=== PATIENT | male | born 1970 | race Caucasian/White ===

== ENCOUNTER → 2017-04-26 | Outpatient (CLI) | payer OTHER ==
[~2017-04-26] VITALS: Ht 172.7 cm; Wt 80.8 kg
[2017-04-26 16:00] VITALS: BP 135/78; PULSE 71; Ht 172.7 cm; Wt 80.8 kg
== END | disposition home or self-care (01) ==
LOC: C.NEUR 14:40
PROVIDERS: ATTEND Internal Medicine Pulmonary Disease
DX: R06.83 Snoring (principal); R53.83 Other fatigue; I10 Essential (primary) hypertension; E78.5 Hyperlipidemia, unspecified

== ENCOUNTER → 2017-06-14 | Outpatient (CLI) | payer OTHER ==
--- NOTE | 2017-06-15 05:25 | SPLIT NIGHT TECHNICIAN REPORT ---
[facility] Split Night Polysomnogram - Scratcher Report Study date: 06/14/2017 Referring Physician: Phillip Arroyo M.D. Name: BRUNO GALINDO Scratcher: KRISTY Weaver. Date of : 1970 Height: 47 years, Height 5' 8" Sex: Male Weight: 178.2 lbs Age: 47 Neck Circum: BMI: Medications: 27.09 ASA 81mg, Atenolol 25mg, Atorvastatin Calcium 80mg, HCTZ 25mg, Paroxetine HCl 10mg Patient History Study started on room air with no ETCO2 monitoring in room #8. 47 yr old male here tonight for a possible split psg. He has loud snoring, witnessed apnea and unrefreshing sleep. His father has ÁLVARO. He has HTN and never feels rested. His ESS=19/24. Neck circ=16inches. Parameters Monitored NPSG: E1-M2, E2-M1, Fp1-M2, Fp2-M1, F3-M2, F4-M2, F4-M1, C3-M2, C4-M2, C4-M1, O1-M2, O2-M2, O2-M1, T3-M2, T4-M1, P3-M2, P4-M1, CHIN1, CHIN2, HR, EKG, Legs, PFLOW, SNOR, FLOW, CFLOW, Tidal Volume, THOR, ABDO, SpO2, PLTH, CPRESS, ETCO2 Wave, ETCO2, pH SLEEP SUMMARY DATA DIAGNOSTIC TREATMENT Lights Out: 9:53:20 PM 12:57:50 AM Lights On: 12:45:20 AM 5:17:50 AM Total Recording Time (TRT): 172.1 min. 260.4 min. Total Sleep Time (TST): 152.0 min. 229.0 min. NREM Time: 148.0 min. 159.5 min. REM Time: 4.0 min. 69.5 min. Sleep Period Time (SPT): 156.5 min. 246.0 min. Sleep Efficiency (SE): 88 % 88 % Sleep Latency: 15.5 min. NONE min. Arousal Index: 17.0 9.4 PAP Treatment Levels: 4, 6, 7, 8, 10, 12, 14, 15 * Optimal Pressure(s) SLEEP STAGING DATA DIAGNOSTIC TREATMENT Duration (min) TST % Duration (min) TST % Stage Wake: 20.1 min. -- 31.4 min. -- WASO: 4.5 min. -- 17.0 min. -- NREM: 148.0 min. 97 % 159.5 min. 70 % Stage N1: 12.0 min. 8 % 24.5 min. 11 % Stage N2: 74.0 min. 49 % 121.5 min. 53 % Stage N3: 62.0 min. 41 % 13.5 min. 6 % REM: 4.0 min. 3 % 69.5 min. 30 % POSITIONAL DATA Event Count Index Event Count Index Supine: 42 17 18 8.2 Supine NREM: 40 16.2 16 10.6 Supine REM: 2 30 2 3 Non-Supine: N/A N/A 19 11.1 Non-Supine NREM: N/A N/A 18 14.8 Non-Supine REM: N/A N/A 1 2.1 AROUSAL SUMMARY DATA: Event Count Index Event Count Index Apnea Arousals: 1 0.4 5 2.1 Hypopnea Arousals: 28 11.1 16 4.2 Snore Arousals: 3 1.2 1 0.3 PLM Arousals: 1 0.4 1 0.3 Non-Specific Arousals: 7 2.8 11 2.9 Total Arousals: 43 17.0 36 9.4 MYOCLONUS (PLM) Event Count Index Event Count Index PLM: 11 4.3 13 3.4 PLM AROUSAL: 1 0.4 1 0.3 PLM W/O AROUSAL 11 4.3 12 3.1 PLM W/RESP EVENT 0 0.0 1 0.0 MYOCLONUS (PLM) Event Count Index Event Count Index LM: 3 9.9 45 11.8 LM AROUSAL: 3 1.2 3 0.8 LM W/O AROUSAL LM W/RESP EVENT LM NON SPECIFIC 27 10.7 51 13.4 HEART RATE DATA DIAGNOSTIC TREATMENT Sleep (bpm): 59 55 REM (bpm): 91 92 NREM (bpm): 91 91 Tachycardia Count: 0 0 Tachycardia Duration: 0.00 0 Bradycardia Count: 0 0 Bradycardia Duration: 0.00 0 DIAGNOSTIC PORTION TREATMENT PORTION RESPIRATORY DATA Event Count Index Event Count Index AHI: -- 16.6 -- 9.4 RDI: -- 16.6 -- 10 Obstructive Apnea: 0 0.0 5 1.3 Central Apnea: 0 0.0 2 0.5 Mixed Apnea: 1 0.4 1 0.3 Hypopnea: 41 16.2 28 7.3 RERA: 0 0.0 1 0.3 Total Apneas: 1 0.4 8 2.1 RESPIRATORY DATA REM NREM SLEEP REM NREM SLEEP Supine Position: Obstructive Apneas: 0 0 0 0 2 2 Central Apneas: 0 0 0 0 0 0 Mixed Apneas: 0 1 1 0 0 0 Hypopneas: 2 39 41 2 14 16 RERA 0 0 0 0 0 0 Total Supine Events: 2 40 42 2 16 18 Supine AHI: 30 16.2 17 3 10.6 8.2 Supine RDI: 30.0 16.2 16.6 2.9 10.6 8.2 REM NREM SLEEP REM NREM SLEEP Non-Supine Position: Obstructive Apneas: N/A N/A N/A 0 3 3 Central Apneas: N/A N/A N/A 0 2 2 Mixed Apneas: N/A N/A N/A 0 1 1 Hypopneas: N/A N/A N/A 1 11 12 RERA N/A N/A N/A 0 1 1 Total Supine Events: N/A N/A N/A 1 18 19 Supine AHI: N/A N/A N/A 2.1 14.8 11.1 Supine RDI: N/A N/A N/A 2.1 15.7 11.7 OXYGEN DESTAURATION DATA: Event Count Index Event Count Index REM Desaturations: 4 60.0 3 2.6 NREM Desaturations: 66 26.8 33 12.4 SNORE DATA DIAGNOSTIC TREATMENT Snore Time: 4.7 1:11:50 AM Snore TST%: 2 8 Snore Arousal Count: 3 1 Snore Arousal Index: 1.2 0.3 Desaturation Event Summary: Minimum %SpO2 Event Count Mean/Min/Max Duration(sec.) Desaturation Index % Time In Bed > 90 115 29.5 / 4.0 / 59.8 27.7 58.4 86 - 90 9 25.8 / 4.0 / 56.3 3.1 41.1 81 - 85 0 N/A 0.0 0.4 76 - 80 1 5.0 / 5.0 / 5.0 369.2 0.0 71 - 75 0 N/A 0.0 0.0 66 - 70 0 N/A 0.0 0.0 61 - 65 0 N/A 0.0 0.0 56 - 60 0 N/A 0.0 0.0 51 - 55 0 N/A 0.0 0.0 < 50 0 N/A 0.0 0.0 OXYGEN SATURATION DATA DIAGNOSTIC TREATMENT SpO2 Mean Sleep: 91 % 91 % SpO2 Mean REM: 91 % 92 % SpO2 Mean NREM: 91 % 91 % SpO2 Minimum Sleep: 79 % 85 % SpO2 Minimum REM: 85 % 85 % SpO2 Minimum NREM: 79 % 85 % Time Below 90% (TST): 20.4 69.4 Time Below 88% (TST): 4.3 10.1 Total REM NREM Awake <50% 0.0 min. 0.0 min. 0.0 min. 0.0 min. 51 - 60% 0.0 min. 0.0 min. 0.0 min. 0.0 min. 61 - 70% 0.0 min. 0.0 min. 0.0 min. 0.0 min. 71 - 80% 0.2 min. 0.0 min. 0.1 min. 0.1 min. 81 - 90% 176.9 min. 21.4 min. 142.3 min. 13.2 min. 91 - 100% 248.7 min. 51.9 min. 161.8 min. 35.1 min. Average 91 92 91 92 Minimum SpO2 79 85 79 79 Desaturation Event Index 16.4 5.7 19.3 15.3 # Desat. Events below 89% 65 5 58 2 Time (%) with Saturation below 89% 9.8 0.5 8.7 0.6 Time(min.) with Saturation below 89% 41.6 1.9 37.0 2.7 Recording Scratcher Comments: Mr. Galindo slept in the right and supine positions. No cardiac arrhythmia noted. Some leg movements were noted. No bruxism noted. Snoring was noted and scored as a 3 on a scale of 1 through 5. (0=no snoring, 5=snoring loud enough to be heard through a closed door or down the long way) At 12:57am he had met specific Split-Night criteria during the diagnostic portion of this study. CPAP was initiated at +4 CMH2O and up-titrated to an optimal level of +15 CMH2O, which nearly eliminated all respiratory events and snoring. A medium Quattro Air full face mask was used during titration. He awoke to use the restroom 1 time during the night. He stated that he slept about the same as when at home. The final report will be interpreted and signed by a sleep physician. The completed physician report will then be placed in the patient medical record. Therapy Event: Therapy (cm H20) 0 4 6 7 8 10 12 14 15 Total Time at Pressure (min.) 172.1 29.9 41.3 29.1 28.0 34.0 31.6 24.9 41.1 TST at Pressure (min.) 152.0 12.5 40.5 26.9 27.5 33.5 30.6 17.9 39.6 # Periods 1 1 1 1 1 1 1 1 1 Sleep Onset (min.) 15.5 13.9 0.0 0.2 0.0 0.0 0.0 0.0 0.0 REM Onset (min.) 84.0 N/A N/A 2.2 6.1 N/A 3.6 N/A 22.1 Sleep Efficiency % 88 41 98 92 98 98 96 71 96 Wakefulness (%) 11.7 58.2 2.0 7.4 1.8 1.5 3.2 28.1 3.6 Wakefulness (min.) 20.1 17.4 0.8 2.2 0.5 0.5 1.0 7.0 1.5 NREM 1 (%) 7.0 26.8 1.2 18.9 3.6 0.0 9.5 20.1 3.6 NREM 1 (min.) 12.0 8.0 0.5 5.5 1.0 0.0 3.0 5.0 1.5 NREM 2 (%) 43.0 15.0 64.1 11.7 57.1 98.5 12.9 51.7 50.2 NREM 2 (min.) 74.0 4.5 26.5 3.4 16.0 33.5 4.1 12.9 20.6 NREM 3 (%) 36.0 0.0 32.7 0.0 0.0 0.0 0.0 0.0 0.0 NREM 3 (min.) 62.0 0.0 13.5 0.0 0.0 0.0 0.0 0.0 0.0 REM (%) 2.3 0.0 0.0 62.0 37.5 0.0 74.4 0.0 42.5 REM (min.) 4.0 0.0 0.0 18.0 10.5 0.0 23.5 0.0 17.5 # Arousals 43 10 2 3 0 1 4 9 7 Arousal Index 17.0 48.0 3.0 6.7 0.0 1.8 7.8 30.2 10.6 # Snore 241 1 7 6 10 172 309 9 10 Snore Index 95.1 4.8 10.4 13.4 21.8 307.6 606.1 30.2 15.1 AHI 16.6 38.4 7.4 8.9 13.1 5.4 9.8 13.4 1.5 AHI Supine 16.6 17.1 N/A N/A 37.1 5.4 9.8 13.4 1.5 AHI Non-Supine N/A 46.7 7.4 8.9 5.7 N/A N/A N/A N/A NREM AHI 16.2 38.4 7.4 20.2 21.2 5.4 25.4 13.4 2.7 REM AHI 30.0 N/A N/A 3.3 0.0 N/A 5.1 N/A 0.0 RDI 16.6 43.2 7.4 8.9 13.1 5.4 9.8 13.4 1.5 # Obstructive 0 0 0 1 2 1 0 1 0 # Central Ap 0 1 1 0 0 0 0 0 0 # Mixed 1 0 1 0 0 0 0 0 0 # Hypopneas 41 7 3 3 4 2 5 3 1 RERAS 0 1 0 0 0 0 0 0 0 Total Respiratory Events 42 9 5 4 6 3 5 4 1 Time Below SpO2 89.00% (min.) 9.1 0.3 0.9 0.8 8.3 17.5 2.0 0.1 0.0 Mean NREM SpO2 (%) 91 91 90 91 89 88 90 93 95 Mean REM SpO2 (%) 91 N/A N/A 92 89 N/A 91 N/A 96 Mean Sleep SpO2 (%) 91 91 90 92 89 88 91 93 95 Min NREM SpO2 (%) 79 87 86 85 86 87 87 87 93 Min REM SpO2 (%) 85 N/A N/A 85 88 N/A 89 N/A 94 Position Supine (min.) 152.0 3.5 0.0 0.0 6.5 33.5 30.6 17.9 39.6 Position Non-supine (min.) 0.0 9.0 40.5 26.9 21.0 0.0 0.0 0.0 0.0 LM Index Sleep 14.2 9.6 3.0 22.3 10.9 0.0 29.4 16.8 28.8 LM Index NREM 13.4 9.6 3.0 6.7 10.6 0.0 16.9 16.8 10.8 LM Index REM 45.0 N/A N/A 30.0 11.4 N/A 33.2 N/A 51.4 Mean Heart Rate (bpm) 59 58 57 59 56 54 54 53 53 Min Heart Rate (bpm) 54 55 54 34 52 52 51 50 50
--- NOTE | 2017-06-18 01:05 | POLYSOMNOGRAPH REPORT ---
CLINICAL DATA: A 47-year-old male with BMI of 27.09 referred by myself and Dr. Moreno of the [place] for evaluation of possible sleep apnea. He has loud snoring , fatigue, and a family history of sleep apnea. His [place] sleepiness score was elevated at 19/24. This was a modified split night study. SLEEP ARCHITECTURE: For the diagnostic portion of this study, total recording time was 172 minutes. Total sleep period was 156.5 minutes. Total sleep time was 152 minutes divided between 148 minutes of non-REM sleep and 4 minutes of REM sleep. Sleep latency was 15.5 minutes. Sleep efficiency was 88%. Arousal index was 17. Sleep consisted of stage N1 8%, stage N2 49%, stage N3 41%, and REM 3%. For the treatment portion of the study, total recording time was 260.4 minutes. Total sleep period was 246 minutes. Total sleep time was 229 minutes, divided between 159.5 minutes of non-REM sleep and 69.5 minutes of REM sleep. Sleep latency was immediate. Sleep efficiency was 88%. Arousal index was 9.4. Sleep consisted of stage N1 11%, stage N2 53%, stage N3 6%, and REM 30%. AROUSAL DATA: Prior to treatment, 43 arousals were recorded for an index of 17 per hour. During treatment, 36 arousals were recorded for an index of 9.4 per hour. PLM DATA: Prior to treatment, 27 limb movements during sleep were noted for an index of 10.7 per hour. During treatment 51 limb movements during sleep were noted for an index of 13.4 per hour. EKG: Heart ranged from 55-92 beats per minute. No arrhythmias were noted. RESPIRATORY DATA: Moderate sleep apnea was documented prior to treatment. The AHI was 16.6. There was 1 mixed apneic episode and 41 hypopneic episodes. The mean AHI during treatment was 9.4. OXIMETRY DATA: Nocturnal hypoxemia was seen prior to treatment. Oxygen carlos was 79% during non-REM sleep prior to treatment. The mean saturation for the treatment was 91%. VIS[employer]SE [employer]PARTMENT WORKER'S COMMENTS AND TREATMENT SUMMARY: The patient slept in the right and supine positions. Snoring was moderate, 3 on a scale of 1-5. At 12:57 a.m., he met split night criteria. He used a medium Quattro Air full face mask. He was started on CPAP and titrated up to 15 cm of water pressure. At this final pressure setting, he slept for 39.6 minutes with an AHI of 1.5. IMPRESSION: Moderate sleep apnea/hypopnea, nocturnal hypoxemia corrected with CPAP at 15 cm of water pressure, medium Quattro Air full facemask. RECOMMENDATIONS: The patient should be started on the above noted treatment regimen and seen back in followup within 90 days to document efficacy and compliance. ZEE
== END | disposition home or self-care (01) ==
LOC: C.NEUR 20:00
PROVIDERS: ATTEND Internal Medicine Pulmonary Disease
DX: R53.83 Other fatigue (principal); I10 Essential (primary) hypertension; R06.83 Snoring; E78.5 Hyperlipidemia, unspecified; G47.9 Sleep disorder, unspecified

== ENCOUNTER → 2017-07-05 | Outpatient (CLI) | payer OTHER ==
[~2017-07-05] VITALS: Ht 172.7 cm; Wt 81.4 kg
[2017-07-05 15:37] VITALS: BP 129/82; PULSE 73; Ht 172.7 cm; Wt 81.4 kg
== END | disposition home or self-care (01) ==
LOC: C.NEUR 14:56
PROVIDERS: ATTEND Internal Medicine Pulmonary Disease
DX: G47.33 Obstructive sleep apnea (adult) (pediatric) (principal); I73.9 Peripheral vascular disease, unspecified; E78.5 Hyperlipidemia, unspecified; I10 Essential (primary) hypertension